=== PATIENT | female | born 2000 | race Caucasian/White ===

== ENCOUNTER → 2021-06-09 | Outpatient (CLI) | payer OTHER ==
--- NOTE | 2021-06-09 13:38 | CARD ---
MR#: [id number] Date of Study: 06/09/2021 Ordering Physician: FRANCIA GALVEZ, Referring Physician: FRANCIA GALVEZ, Tech: Patti Byers, [facility] APPROVED REPORT EXAM: Two-dimensional and M-mode echocardiogram with Doppler and color Doppler. Other Information Quality : AverageHR: 93bpm INDICATION Near Syncope 2D DIMENSIONS RVDd3.5 (2.9-3.5cm)Left Atrium(2D)3.1 (1.6-4.0cm) IVSd0.8 (0.7-1.1cm)Aortic Root(2D)2.9 (2.0-3.7cm) LVDd4.7 (3.9-5.9cm)LVOT Diameter2.0 (1.8-2.4cm) PWd0.7 (0.7-1.1cm)LVDs3.2 (2.5-4.0cm) FS (%) 32.6 %SV63.0 ml Aortic Valve AoV Peak Wai.128.7cm/sAoV VTI30.2cm AO Peak GR.6.6mmHgLVOT Peak Wai.112.0cm/s LVOT VTI 25.98cmAO Mean GR.4mmHg DON (VMAX)2.40rm5RNI (VTI)2.75cm2 Mitral Valve MV E Izpiyzqw92.8cm/sMV DECEL SLAK882vw MV A Dmcjhwlm59.9cm/sMV E Mean Gr.2mmHg MV OZF63rzS/A Ratio1.6 MVA (PHT)4.35cm2 TDI E/Lateral E'6.1E/Medial E'9.5 Pulmonary Valve PV Peak Eafbavwq26.9cm/sPV Peak Grad.3mmHg Tricuspid Valve TR P. Muhaizmo919tf/sRAP USLDBQRX5vhVq TR Peak Gr.15mxIzQDWU32zzVv Pulmonary Vein S1 Jcjpmcgz72.8cm/sD2 Ymdgvalp90.8cm/s PVa zjlyawgb31lzst LEFT VENTRICLE The left ventricle is normal size. There is normal left ventricular wall thickness. The left ventricu lar systolic function is normal and the ejection fraction is within normal range. The Ejection Fracti on is 55-60%. There is normal LV segmental wall motion. The left ventricular diastolic function and f illing is normal for age. RIGHT VENTRICLE The right ventricle is normal size. There is normal right ventricular wall thickness. The right ventr icular systolic function is normal. ATRIA The left atrium size is normal. The right atrium size is normal. The interatrial septum is intact wit h no evidence for an atrial septal defect or patent foramen ovale as noted on 2-D or Doppler imaging. AORTIC VALVE The aortic valve is normal in structure and function. Doppler and Color Flow revealed no significant aortic regurgitation. There is no significant aortic valvular stenosis. Calculated aortic valve area is 2.67 cm2 with maximum pressure gradient of 7 mmHg and mean pressure gradient of 4 mmHg. MITRAL VALVE The mitral valve is normal in structure and function. There is no evidence of mitral valve prolapse. There is no mitral valve stenosis. Doppler and Color-flow revealed trace mitral regurgitation. TRICUSPID VALVE The tricuspid valve is normal in structure and function. Doppler and Color Flow revealed trace tricus pid regurgitation with an estimated PAP of 30 mmHg. There is no tricuspid valve stenosis. PULMONIC VALVE The pulmonary valve is normal in structure and function. Doppler and Color Flow revealed trace pulmon ic valvular regurgitation. GREAT VESSELS The aortic root is normal in size. The ascending aorta is normal in size. The IVC is normal in size a nd collapses >50% with inspiration. PERICARDIAL EFFUSION There is no evidence of significant pericardial effusion. Critical Notification Critical Value: No <Conclusion> The left ventricle is normal size. The left ventricular systolic function is normal and the ejection fraction is within normal range. The Ejection Fraction is 55-60%. Doppler and Color Flow revealed no significant aortic regurgitation. There is no significant aortic valvular stenosis. Doppler and Color-flow revealed trace mitral regurgitation. Doppler and Color Flow revealed trace tricuspid regurgitation with an estimated PAP of 30 mmHg. Signed by : Omar Quiros MD Electronically Approved : 06/09/2021 13:37:42
== END ==
LOC: ECHO 08:45
PROVIDERS: ATTEND Internal Medicine Cardiovascular Disease
DX: R55 Syncope and collapse (principal)
CPT/HCPCS: 93306